=== PATIENT | female | born 2005 | race Caucasian/White ===

== ENCOUNTER 2025-02-05 17:24 | Outpatient (CLI) | payer BC, SELFPAY | END 2025-02-05 17:25 | disposition home or self-care (01) | LOC: LKVREF 17:24 | PROVIDERS: PCP Emergency Medicine; Visit Provider Physician Assistant | DX: R50.9 Fever, unspecified (principal); R21 Rash and other nonspecific skin eruption | CPT/HCPCS: 86618 ==